=== PATIENT | female | born 1955 | race Caucasian/White ===

== ENCOUNTER → 2024-01-25 08:31 | Outpatient (REF) | payer OTHER, SELFPAY | LOC: WDC 08:31 | PROVIDERS: ATTENDING PHYSICIAN Obstetrics & Gynecology; FAMILY PHYSICIAN Family Medicine | DX: Z12.31 Encounter for screening mammogram for malignant neoplasm of breast (principal) | CPT/HCPCS: 77063; 77067 ==

== ENCOUNTER → 2024-02-03 08:59 | Outpatient (REF) | payer OTHER, SELFPAY | LOC: RAD 08:59 | PROVIDERS: ATTENDING PHYSICIAN Obstetrics & Gynecology; FAMILY PHYSICIAN Family Medicine | DX: Z78.0 Asymptomatic menopausal state (principal) | CPT/HCPCS: 77080 ==

== ENCOUNTER → 2025-01-29 08:36 | Outpatient (REF) | payer OTHER, SELFPAY | LOC: WDC 08:36 | PROVIDERS: ATTENDING PHYSICIAN Obstetrics & Gynecology | DX: Z12.31 Encounter for screening mammogram for malignant neoplasm of breast (principal) | CPT/HCPCS: 77063; 77067 ==

== ENCOUNTER 2025-04-04 10:09 | Emergency (ER) | payer OTHER, SELFPAY ==
[2025-04-04 10:15] VITALS: BP 167/94
[2025-04-04 10:34] LABS: % Basophils 0.3 % (0-2); % Eosinophils 4.3 % (0-6); % Immature Granulocytes 0.4 % (0-0.5); % Monocytes 6.4 % (1.7-9.3); % Neutrophils 60.6 % (42.2-75.2); Absolute Eosinophils 0.3 10^3/uL (0-0.7); Absolute Lymphocytes 2.2 10^3/uL (1.2-3.4); Absolute Monocytes 0.5 10^3/uL (0.1-0.6); Absolute Neutrophils 4.7 10^3/uL (1.4-6.5); Hematocrit 39.9 % (37.0-47.0); Hemoglobin 13.3 g/dL (12.0-16.0); Mean Corp Hgb Conc. 33.3 g/dL (33.0-37.0); Mean Corpuscular Volume 90.1 fL (81.0-99.0); Mean Platelet Volume 8.9 fL (7.4-10.4); Nucleated Red Blood Cells % 0 %; Platelet Count 310 10^3/uL (130-400); Red Blood Cell Count 4.43 10^6/uL (4.20-5.40); Red Cell Dist. Width 13.6 % (11.5-14.5); White Blood Cell Count 7.8 10^3/uL (4.8-10.8)
[2025-04-04 10:50] LABS: ALT (SGPT) 23 U/L (0-35); AST (SGOT) 27 U/L (14-36); Albumin 4.5 g/dl (3.5-5.0); Alkaline Phosphatase 45 U/L (38-126); Blood Urea Nitrogen 21 mg/dl (7-17); Calcium 10.3 mg/dl (8.4-10.2); Carbon Dioxide 30 mmol/L (22-30); Chloride 103 mmol/L (98-107); Glucose 134 mg/dl (70-99); Potassium 4.3 mmol/L (3.5-5.1); Sodium 141 mmol/L (135-145); Total Bilirubin 0.6 mg/dl (0.2-1.3); Total Protein 7.5 g/dl (6.3-8.2); eGFR > 60.00
[2025-04-04 10:55] LABS: Troponin I < 0.012 ng/ml
--- NOTE | 2025-04-04 11:35 | ED.GENMED ---
History of Present Illness
General
Chief Complaint: Chest Pain
Source: patient
Exam Limitations: none
Time Seen by Provider: 04/04/25 11:19
History of Present Illness
History of Present Illness:
69yoF with a history of hyperlipidemia and sleep apnea presenting with her for evaluation of epigastric discomfort. Symptoms began last night. She was sitting in her couch and stood up to go to bed when she experienced a sharp pain in her
lower chest/epigastric region. The pain is located beneath her breasts bilaterally and is nonradiating. She woke up again with the symptoms this morning. She did go on an hour walk this morning and did not have any pain with exertion. She did
notice that her pain was worse if she rotated her trunk. Symptoms have mostly resolved and she currently rates her discomfort as a 1/10 in severity. She denies any postprandial or pleuritic pain. She is otherwise asymptomatic and denies any
nausea, dizziness, diaphoresis, shortness of breath. She spoke with her PCP today regarding her symptoms and was told to go to the ED for evaluation. She has no prior history of heart disease. No tobacco use.
Past History
Past History
ED Past Medical History: None
ED Past Surgical History: Gynecological
Phy Exam
General Physical Exam
General Presentation: well appearing and no apparent distress
General age: appears stated age
General Skin: warm and dry
General Habitus: normal
General Mental: alert
ENT Exam
ENT Exam: normocephalic
Cardiovascular Exam
Cardiovascular Exam: regular rate/rhythm, no edema and no murmur
Pulmonary Exam
Pulmonary Exam: lungs clear, no respiratory distress, no rales, chest non tender, no crackles, no rhonchi and no wheezing
Gastrointestinal Exam
Gastrointestinal Exam: non tender, soft and non distended
Neurological Exam
Neurological Exam: alert
[place] Coma Scale
Eye Opening: Spontaneous
Verbal Response: Oriented
Motor Response: Obeys Commands
GCS Total Score: 15
Skin Exam
Skin Exam: normal color and warm/dry
Psychiatric Exam
Psychiatric Exam: normal mood/affect
Scores
Heart Score for Chest Pain Patients
STEMI patient?: No
History: Slightly or Non-Suspicious
ECG: Normal
Age: >/= 65 years
Risk Factors: 1 or 2 Risk Factors
Troponin: </= Normal Limit
Heart Score for Chest Pain Patients: 3
Heart Score Risk: 2.5% MACE over next 6 weeks
Course
Orders/Labs/Results
Orders:
Orders
04/04/25 10:10
Electrocardiogram (*1) Urgent
Reason for Study: Chest Pain
EKG- Treatment ONCE
04/04/25 10:24
Complete Blood Count/With Diff Urgent
Comprehensive Metabolic Panel Urgent
Lipase Urgent
Comment: ADD
Troponin I Urgent
04/04/25 11:19
Add On- LAB Urgent
Tests Added?: lipase
04/04/25 11:32
CR Chest - 2 Views Urgent
Comment:
Reason For Exam: CP
US Abdomen Complete/Upper Urgent
Comment:
Reason For Exam: epigastric pain
Abnormal Lab Results
04/04/25
10:24
BUN 21 H mg/dl
(7-17)
Glucose 134 H mg/dl
(70-99)
Calcium 10.3 H mg/dl
(8.4-10.2)
04/04/25 10:24
04/04/25 10:24
Vital Signs
Initial and Last Documented VS:
Initial Vital Signs
Temp Pulse Resp BP Pulse Ox
98.7 F 81 18 167/94 96
04/04/25 10:15 04/04/25 10:15 04/04/25 10:15 04/04/25 10:15 04/04/25 10:15
Last Documented Vital Signs
Temp Pulse Resp BP Pulse Ox
97.8 F 72 18 138/77 97
04/04/25 14:21 04/04/25 14:21 04/04/25 14:21 04/04/25 14:21 04/04/25 14:21
MDM/Problems Addressed
Differential Diagnosis Includes:
69yoF here with lower chest/epigastric pain that began last night. Described as sharp, worse with movement. No exertional or pleuritic symptoms. Symptoms mostly resolved on initial assessment. No associated SOB/diaphoresis/nausea. She is mildly
hypertensive with otherwise stable vitals. She is well appearing in no distress. Exam is reassuring. No reproducible abdominal or chest wall tenderness noted. Differential diagnosis includes but is not limited to: ACS, angina, esophagitis, biliary
colic, pancreatitis
Initial ED plan: Labs and EKG obtained in triage. EKG shows NSR without ischemic changes and troponin WNL. Remainder of labs unremarkable including normal white count and LFTs. Chest pain has been constant for >6 hours, no need for repeat troponin.
Will add on lipase, CXR, and upper abdominal ultrasound.
*EKG
Interpreted by ED Provider?: Yes
EKG Intrepretation Date: 04/04/25
Heart Rate: 71
Rate: normal
Rhythm: sinus
[place]: normal axis
Interval: normal interval
QRS Pattern: normal QRS
Ischemia: no ischemia
*Critical Care Note
Total Time (30-74mins, 75-104mins- exclusive of procedures): Not Applicable
Update Note
Update Note:
Lipase within normal limits. Chest x-ray is clear and upper abdominal ultrasound negative for acute findings. Patient is asymptomatic on reassessment and pain has completely resolved. No indication for hospitalization. She was instructed to
follow-up closely with her PCP for re-evaluation. ED return precautions reviewed. Patient in agreement with plan and was discharged in stable condition.
ED Attending Note
-
Portions of this chart may have been created with voice recognition software.� Occasional wrong word or��sound alike� substitutions may have occurred due to the inherent limitations of voice recognition software.
Discharge Plan
Departure
Patient Disposition: Home (Routine Discharge)
Date of Disposition: 04/04/25
Time of Disposition: 14:04
Patient with high blood pressure during this ER visit?: Yes
Discharge Problem:
Chest pain
Instructions: Chest Pain PCP Follow Up
Referrals:
Peter Cannon MD [Family Provider] -
Activity Restrictions/Additional Instructions:
Please call your family doctor today to schedule a follow-up appointment. Return to the ER immediately with any new or worsening symptoms.
Interventions
Interventions:
*Risk Screen - Suicide Last Done: 04/04/25 10:15
*General Assessment Last Done: 04/04/25 10:15
*Neglect/Abuse Screening Last Done: 04/04/25 10:15
*ED- Fall Risk Assessment Last Done: 04/04/25 12:02
*ED COVID-19 Vaccine History Last Done: 04/04/25 12:06
*Nursing Disposition Last Done: 04/04/25 14:21
ED- Cardiac Assessment Last Done: 04/04/25 12:02
Discharge Date and Time
Discharge Date/Time: 04/04/25 14:10
Print Language: TELUGU
[2025-04-04 11:45] LABS: Lipase 143 U/L (23-300)
[2025-04-04 12:02] VITALS: BMI 27.3
[2025-04-04 12:06] VITALS: BP 152/82
[2025-04-04 12:56] VITALS: BP 129/68
[2025-04-04 13:00] VITALS: BP 139/77
--- NOTE | 2025-04-04 14:10 | EDRN ---
Reviewed discharge instructions with patient. Verbalized understanding. Ambulated with steady gait to the lobby.
[2025-04-04 14:21] VITALS: BP 138/77
== END 2025-04-04 14:10 | disposition home or self-care (01) ==
LOC: EMR 10:09
PROVIDERS: EMERGENCY PHYSICIAN Emergency Medicine; FAMILY PHYSICIAN Family Medicine
DX: R07.9 Chest pain, unspecified (principal); R10.13 Epigastric pain; E78.5 Hyperlipidemia, unspecified; G47.30 Sleep apnea, unspecified
CPT/HCPCS: 99285; 71046; 76700; 80053; 83690; 84484; 85025; 93005